=== PATIENT | male | born 1940 | race Caucasian/White ===

== ENCOUNTER 2022-07-09 12:00 | Outpatient (CLI) | payer MEDICARE | END 2022-07-09 12:01 | disposition home or self-care (01) | LOC: LABBT 12:00 | PROVIDERS: ATTEND Ophthalmology Retina Specialist | DX: Z20.822 Contact with and (suspected) exposure to COVID-19 (principal) | CPT/HCPCS: 87811 ==

== ENCOUNTER 2022-07-10 11:36 | Day surgery (SDC) | payer MEDICARE ==
[2022-07-09 14:16] VITALS: BMI 24.0
[~2022-07-10 11:36] MED LIST: EPINEPHrine 0.3 MG in Ophthalmic Irrigation Solution 500 ML IRR SCH; Midazolam HCl 2 mg/2 ml Vial ONE; fentaNYL Citrate/PF 100 MCG/2 ML SYRINGE ONE
[2022-07-10] MEDS ORDERED: Cyclopentolate 1% Opth Drop 2 ML BOT ONE (12:04)
[2022-07-10] MEDS ORDERED: Phenylephrine 2.5% Ophth Soln 5 ML BOT ONE (12:04)
[2022-07-10] MEDS ORDERED: PROPOFOL 200 MG/20 ML VIAL ONE (12:36)
[2022-07-10] MEDS ORDERED: Lidocaine 4% PF 5 ML AMP ONE (12:36)
[2022-07-10] MEDS ORDERED: Triamcinolone 40 MG/ML VIAL ONE (12:36)
[2022-07-10] MEDS ORDERED: CEFAZOLIN 1 GM VIAL ONE (12:36)
[2022-07-10] MEDS ORDERED: Lidocaine 1% PF 5 ML VIAL ONE (12:36)
[2022-07-10] MEDS ORDERED: Bupivacaine 0.75% 10 ML VIAL ONE (12:36)
[2022-07-10] MEDS ORDERED: Maxitrol 0.1% Opth Oint 3.5 GM TUBE ONE (12:36)
== END 2022-07-10 15:01 | disposition home or self-care (01) ==
LOC: SDC 11:36
PROVIDERS: ATTEND Ophthalmology Retina Specialist
PROC: 08T53ZZ Resection of Left Vitreous, Percutaneous Approach (ICD-10-PCS; principal; 2022-07-10)
PROC: 08QF3ZZ Repair Left Retina, Percutaneous Approach (ICD-10-PCS; 2022-07-10)
PROC: 08133J4 Bypass Left Anterior Chamber to Sclera with Synthetic Substitute, Percutaneous Approach (ICD-10-PCS; 2022-07-10)
DX: H40.89 Other specified glaucoma (principal); H43.12 Vitreous hemorrhage, left eye; Z79.01 Long term (current) use of anticoagulants; Z79.899 Other long term (current) drug therapy; Z95.0 Presence of cardiac pacemaker; Z95.2 Presence of prosthetic heart valve
CPT/HCPCS: 66180; 67040; C1762; L8612; J0171; J0690; J2250; J2704; J3301; J3490

== ENCOUNTER 2022-10-16 08:55 | Day surgery (SDC) | payer MEDICARE ==
[2022-10-15 09:02] VITALS: BMI 23.6
[2022-10-16 11:52] LABS: Tube # 1; Unspun CSF Color PINK (Colorless)
[2022-10-16 11:54] LABS: Color Of CSF Supernatant COLORLESS (Colorless)
[2022-10-16 12:09] LABS: CSF, Glucose 57 mg/dl (40-70); CSF, Protein 31 mg/dL (15-40)
[2022-10-16 12:37] LABS: CSF Source CSF
[2022-10-16 12:38] LABS: Clarity Clear (Clear); Tube # 4
[2022-10-16 12:39] LABS: CSF RBC Count - Manual 225 /cu.mm (None Seen); CSF WBC/NonHematics Count-Man 0 /cu.mm (0-5)
[2022-10-16 12:42] VITALS: BP 182/100; TEMP 98.1
[2022-10-16] MEDS ORDERED: FLU VACC QS2022-23(65YR UP)/PF 240 MCG/0.7 ML SYRINGE IM ONE (13:45)
== END 2022-10-16 12:46 | disposition home or self-care (01) ==
LOC: RAD 08:55
PROVIDERS: ATTEND Surgery
PROC: 009U3ZX Drainage of Spinal Canal, Percutaneous Approach, Diagnostic (ICD-10-PCS; principal; 2022-10-16)
DX: G91.2 (Idiopathic) normal pressure hydrocephalus (principal); Z79.899 Other long term (current) drug therapy; Z95.0 Presence of cardiac pacemaker; Z95.3 Presence of xenogenic heart valve
CPT/HCPCS: 62270; 82945; 84157; 87070; 87205; 89051